=== PATIENT | female | born 2000 | race Caucasian/White ===

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

== ENCOUNTER → 2019-09-19 | Outpatient (CLI) | payer OTHER ==
[~2019-09-19] MED LIST changes: +BIRTH CONTROL PILL
== END | disposition home or self-care (01) ==
LOC: LAB 17:40 → LAB SHORT 17:40
PROVIDERS: Nurse Practitioner
DX: Z01.419 Encounter for gynecological examination (general) (routine) without abnormal findings (principal)
CPT/HCPCS: G0145